=== PATIENT | female | born 1935 | race Two or more races ===

== ENCOUNTER 2024-01-18 22:11 | Inpatient (IN) | payer OTHER, MEDICAID ==
[~2024-01-18] VITALS: Ht 152.4 cm; Wt 66.2 kg
[~2024-01-18 22:11] MED LIST: BUSP15TA60 PO; NITR0.4S29 SL; TRAZ1TAB12 PO
[2024-01-18 22:45] VITALS: PULSE 62; RESP 20; O2SAT 98
[2024-01-18 22:54] LABS: Basophils # (auto) 0 10 ^3/uL (0-0.2); Basophils % (auto) 0.6 % (0.0-2.0); Eosinophils # (auto) 0.2 10 ^3/uL (0-0.8); Eosinophils % (auto) 2.9 % (0.0-7.0); Hematocrit 38.1 % (36.0-46.0); Hemoglobin 13.2 g/dL (12.2-16.2); Lymphocytes # (auto) 2.6 10 ^3/uL (0.4-5.4); Lymphocytes % (auto) 31.3 % (10.0-50.0); Mean Corpuscular Hgb Conc. 34.6 g/dL (32.0-36.0); Mean Corpuscular Volume 92.6 fL (80.0-100.0); Monocytes # (auto) 0.6 10 ^3/uL (0-1.3); Monocytes % (auto) 7.5 % (0.0-12.0); Neutrophils # (auto) 4.8 10 ^3/uL (1.6-8.6); Neutrophils % (auto) 57.7 % (37.0-80.0); Nucleated Red Blood Cells % 0.1 %; Platelet Count (auto) 223 10^3/uL (140-450); Red Blood Cells 4.11 10^6/uL (4.0-5.20); Red Cell Distribution Width 14.4 % (11.8-14.3); White Blood Cell 8.2 10^3/uL (4.4-10.8)
[2024-01-18 23:10] LABS: Alanine Aminotransferase 16 U/L (7-40); Albumin 3.8 g/dL (3.2-4.8); Alkaline Phosphatase 82 U/L (46-116); Anion Gap 6 (5-15); Aspartate Aminotransferase 13 U/L (13-40); BUN/Creatinine Ratio 19.7 (10.0-20.0); Bilirubin, Total 0.3 mg/dL (0.2-1.0); Blood Urea Nitrogen 26 mg/dL (9-23); Calcium 9.6 mg/dL (8.7-10.4); Carbon Dioxide 29 mmol/L (20-31); Chloride 108 mmol/L (98-107); Glucose 110 mg/dL (74-106); Potassium 3.9 mmol/L (3.5-5.1); Sodium 143 mmol/L (136-145); Total Protein 5.8 g/dL (5.7-8.2)
[2024-01-19] MEDS: traZODone HCL 50 MG TAB PO ONE ×2 (01:26→22:33)
[2024-01-19] MEDS ORDERED: ONDANSETRON HCL 4 MG/2 ML VIAL IV PRN (06:45)
[2024-01-19] MEDS ORDERED: MORPHINE SULFATE INJ 2 MG/ml SYRG IV PRN (06:45)
[2024-01-19] MEDS ORDERED: HYDROcodone-ACET 5/325MG TAB PO PRN (06:45)
[2024-01-19] MEDS ORDERED: NITROGLYCERIN 0.4 MG SL TAB SL PRN (06:45)
[2024-01-19] MEDS ORDERED: DOCUSATE SOD 100 MG CAP PO PRN (06:45)
[2024-01-19] MEDS ORDERED: ACETAMINOPHEN 325 MG TAB PO PRN (06:45)
[2024-01-19 07:26] LABS: Alanine Aminotransferase 15 U/L (7-40); Albumin 3.6 g/dL (3.2-4.8); Alkaline Phosphatase 73 U/L (46-116); Anion Gap 5 (5-15); Aspartate Aminotransferase 15 U/L (13-40); BUN/Creatinine Ratio 22.2 (10.0-20.0); Bilirubin, Total 0.3 mg/dL (0.2-1.0); Blood Urea Nitrogen 24 mg/dL (9-23); Calcium 9.3 mg/dL (8.7-10.4); Carbon Dioxide 25 mmol/L (20-31); Chloride 110 mmol/L (98-107); Glucose 103 mg/dL (74-106); Potassium 3.9 mmol/L (3.5-5.1); Sodium 140 mmol/L (136-145)
[2024-01-19 07:27] LABS: Total Protein 5.8 g/dL (5.7-8.2)
[2024-01-19 07:29] LABS: Basophils # (auto) 0 10 ^3/uL (0-0.2); Basophils % (auto) 0.5 % (0.0-2.0); Eosinophils # (auto) 0.2 10 ^3/uL (0-0.8); Eosinophils % (auto) 3.2 % (0.0-7.0); Hemoglobin 12.8 g/dL (12.2-16.2); Lymphocytes # (auto) 2.5 10 ^3/uL (0.4-5.4); Lymphocytes % (auto) 33.4 % (10.0-50.0); Mean Corpuscular Hemoglobin 31.8 pg (28.0-32.0); Mean Corpuscular Hgb Conc. 33.6 g/dL (32.0-36.0); Mean Corpuscular Volume 94.7 fL (80.0-100.0); Monocytes # (auto) 0.6 10 ^3/uL (0-1.3); Monocytes % (auto) 8.6 % (0.0-12.0); Neutrophils # (auto) 4.1 10 ^3/uL (1.6-8.6); Neutrophils % (auto) 54.3 % (37.0-80.0); Platelet Count (auto) 203 10^3/uL (140-450); Red Blood Cells 4.01 10^6/uL (4.0-5.20); Red Cell Distribution Width 14.3 % (11.8-14.3); White Blood Cell 7.5 10^3/uL (4.4-10.8)
[2024-01-19 08:00] VITALS: PULSE 64; RESP 14; O2SAT 99
[2024-01-19 08:51] LABS: Urine Bacteria FEW /hpf (None Seen); Urine Blood Negative /uL (Negative); Urine Clarity Clear (Clear); Urine Color Light-Yellow (Yellow); Urine Protein, UAD Negative (Negative); Urine Specific Gravity 1.016 (1.001-1.035); Urine Urobilinogen Normal (Negative); Urine WBC 1 /hpf (0 - 5); Urine pH 6.5 (5.0-9.0)
[2024-01-19] MEDS: ASPirin 81 mg TAB PO SCH (10:05)
[2024-01-19] MEDS: SODIUM CHLOR 0.9% PF (SALINE LOCK) 10ML VIAL/SYR IV SCH (14:19)
[2024-01-19 20:15] VITALS: RESP 16
[2024-01-19 21:10] VITALS: BP 179/78; PULSE 61; RESP 17; TEMP 97.9; O2SAT 99
[2024-01-19] MEDS: hydrALAZINE HCL 20 MG/ML VL IV PRN (22:09)
[2024-01-19] MEDS ORDERED: METO-289 PO (23:35)
[2024-01-19] MEDS ORDERED: AMLO1TAB21 PO (23:35)
[2024-01-19] MEDS ORDERED: DULO60CA41 PO (23:35)
[2024-01-19] MEDS ORDERED: HYDR-3682 PO (23:35)
[2024-01-19] MEDS ORDERED: LEVO25TA6 PO (23:35)
[2024-01-19] MEDS ORDERED: ASPI-543 PO (23:35)
[2024-01-19] MEDS ORDERED: RISP2TAB62 PO (23:35)
[2024-01-20 01:00] VITALS: BP 124/62; PULSE 77; RESP 18; TEMP 97.6; O2SAT 97
[2024-01-20 05:00] VITALS: BP 126/61; PULSE 69; RESP 17; TEMP 97.6; O2SAT 97
[2024-01-20] MEDS: LEVOTHYROXINE SODIUM 25 MCG TAB PO SCH (05:17)
[2024-01-20 07:34] LABS: Alanine Aminotransferase 12 U/L (7-40); Albumin 4.1 g/dL (3.2-4.8); Alkaline Phosphatase 83 U/L (46-116); Anion Gap 8 (5-15); Aspartate Aminotransferase 14 U/L (13-40); BUN/Creatinine Ratio 22.1 (10.0-20.0); Blood Urea Nitrogen 19 mg/dL (9-23); Calcium 9.8 mg/dL (8.7-10.4); Carbon Dioxide 26 mmol/L (20-31); Chloride 106 mmol/L (98-107); Glucose 105 mg/dL (74-106); Potassium 3.7 mmol/L (3.5-5.1); Sodium 140 mmol/L (136-145)
[2024-01-20 07:35] LABS: Bilirubin, Total 0.5 mg/dL (0.2-1.0); Total Protein 6.5 g/dL (5.7-8.2)
[2024-01-20 07:46] LABS: Basophils # (auto) 0 10 ^3/uL (0-0.2); Basophils % (auto) 0.3 % (0.0-2.0); Eosinophils # (auto) 0.1 10 ^3/uL (0-0.8); Eosinophils % (auto) 1.2 % (0.0-7.0); Hematocrit 39.9 % (36.0-46.0); Hemoglobin 13.9 g/dL (12.2-16.2); Lymphocytes # (auto) 2.3 10 ^3/uL (0.4-5.4); Lymphocytes % (auto) 25.3 % (10.0-50.0); Mean Corpuscular Hemoglobin 31.9 pg (28.0-32.0); Mean Corpuscular Hgb Conc. 34.9 g/dL (32.0-36.0); Mean Corpuscular Volume 91.5 fL (80.0-100.0); Monocytes # (auto) 0.4 10 ^3/uL (0-1.3); Monocytes % (auto) 4.9 % (0.0-12.0); Neutrophils # (auto) 6.3 10 ^3/uL (1.6-8.6); Neutrophils % (auto) 68.3 % (37.0-80.0); Platelet Count (auto) 242 10^3/uL (140-450); Red Blood Cells 4.36 10^6/uL (4.0-5.20); Red Cell Distribution Width 14.2 % (11.8-14.3); White Blood Cell 9.1 10^3/uL (4.4-10.8)
[2024-01-20 08:00] VITALS: BP 152/71; PULSE 55; PULSE 69; RESP 18; TEMP 97.6; O2SAT 97
[2024-01-20 10:37] LABS: Free T3 2.12 pg/mL (2.3-4.2)
[2024-01-20 10:39] LABS: Free T4 (Free Thyroxine) 0.94 ng/dL (0.89-1.76)
[2024-01-20] MEDS ORDERED: traZODone HCL 50 MG TAB PO ONE (10:45)
[2024-01-20 12:00] VITALS: BP 147/65; PULSE 66; RESP 18; TEMP 97.6; O2SAT 97
[2024-01-20] MEDS: METOPROLOL SUCCINATE XL 50 MG TAB PO ONE (12:20)
[2024-01-20] MEDS: DULoxetine HCL 30 MG CAP PO ONE (12:21)
[2024-01-20] MEDS: busPIRone HCL 10 MG TAB PO ONE (12:21)
[2024-01-20 14:09] LABS: Amphetamine Screen, Urine Neg (NEGATIVE); Barbiturate Scree,Urine Neg (NEGATIVE); Benzodiazephine Screen, Urine Neg (NEGATIVE); Cocaine Screen, Urine Neg (NEGATIVE)
[2024-01-20 14:10] LABS: Cannabinoid Screen, Urine Neg (NEGATIVE); Opiate Scree,Urine Neg (NEGATIVE); Phencyclidine Screen, Urine Neg (NEGATIVE)
[2024-01-20] MEDS: busPIRone HCL 10 MG TAB PO SCH (14:47)
[2024-01-20 16:00] VITALS: BP 119/55; PULSE 64; RESP 18; TEMP 97.6; O2SAT 96
[2024-01-20] MEDS: amLODIPine BESYLATE 5 MG TAB PO ONE (16:42)
[2024-01-20] MEDS ORDERED: ATOR20TA50 PO (17:30)
[2024-01-20] MEDS: CYANOCOBALAMIN (B-12) 1000 MCG/1 ML VIAL IM ONE (18:57)
[2024-01-20] MEDS: traZODone HCL 50 MG TAB PO SCH (20:29)
[2024-01-20] MEDS: DULoxetine HCL 30 MG CAP PO SCH (20:29)
[2024-01-20] MEDS: ATORVASTATIN 20 MG TAB PO ONE (20:30)
[2024-01-20 21:00] VITALS: BP 129/64; PULSE 65; RESP 19; TEMP 98.3; O2SAT 95
[2024-01-21 01:00] VITALS: BP 126/60; PULSE 70; RESP 18; TEMP 98.1; O2SAT 97
[2024-01-21] MEDS: CYANOCOBALAMIN 500 MCG TAB PO ONE (04:49)
[2024-01-21] MEDS: LEVOTHYROXINE SODIUM 100 MCG TAB PO SCH (04:51)
[2024-01-21 05:00] VITALS: BP 120/64; PULSE 63; RESP 17; TEMP 98; O2SAT 96
[2024-01-21 07:38] LABS: Basophils # (auto) 0 10 ^3/uL (0-0.2); Basophils % (auto) 0.3 % (0.0-2.0); Eosinophils # (auto) 0.2 10 ^3/uL (0-0.8); Eosinophils % (auto) 2.1 % (0.0-7.0); Hematocrit 38.5 % (36.0-46.0); Hemoglobin 13.2 g/dL (12.2-16.2); Lymphocytes # (auto) 2.4 10 ^3/uL (0.4-5.4); Lymphocytes % (auto) 33.8 % (10.0-50.0); Mean Corpuscular Hemoglobin 31.5 pg (28.0-32.0); Mean Corpuscular Hgb Conc. 34.3 g/dL (32.0-36.0); Mean Corpuscular Volume 91.9 fL (80.0-100.0); Monocytes # (auto) 0.5 10 ^3/uL (0-1.3); Monocytes % (auto) 7.6 % (0.0-12.0); Neutrophils % (auto) 56.2 % (37.0-80.0); Nucleated Red Blood Cells % 0.1 %; Platelet Count (auto) 233 10^3/uL (140-450); Red Blood Cells 4.19 10^6/uL (4.0-5.20); Red Cell Distribution Width 14.5 % (11.8-14.3); White Blood Cell 7.2 10^3/uL (4.4-10.8)
[2024-01-21 07:49] LABS: Anion Gap 6 (5-15); Carbon Dioxide 25 mmol/L (20-31); Chloride 108 mmol/L (98-107); Potassium 3.9 mmol/L (3.5-5.1); Sodium 139 mmol/L (136-145)
[2024-01-21 07:50] LABS: Calcium 9.5 mg/dL (8.7-10.4)
[2024-01-21 07:55] LABS: BUN/Creatinine Ratio 24.3 (10.0-20.0); Blood Urea Nitrogen 27 mg/dL (9-23); Glucose 102 mg/dL (74-106)
[2024-01-21] MEDS: amLODIPine BESYLATE 5 MG TAB PO SCH (09:59)
[2024-01-21] MEDS: METOPROLOL SUCCINATE XL 50 MG TAB PO SCH (09:59)
[2024-01-21] MEDS ORDERED: CYANOCOBALAMIN (B-12) 1000 MCG/1 ML VIAL IM SCH (10:00)
[2024-01-21] MEDS: CYANOCOBALAMIN (B-12) 1000 MCG/1 ML VIAL IM ONE (13:00)
[2024-01-21] MEDS ORDERED: APIX5TAB PO (13:31)
[2024-01-21] MEDS ORDERED: CYAN-17 PO (14:06)
[2024-01-21] MEDS: APIXABAN 5 MG TAB PO SCH (15:07)
[2024-01-21 15:11] VITALS: BP 116/52; PULSE 60; TEMP 36.7
[2024-01-22] MEDS ORDERED: CYANOCOBALAMIN (B-12) 1000 MCG/1 ML VIAL IM SCH (10:00)
[2024-01-28] MEDS ORDERED: APIXABAN 5 MG TAB PO SCH (10:00)
== END 2024-01-21 18:35 | disposition home or self-care (01) | DRG 204 ==
LOC: ER 22:11 → TELE 01-19 06:44 → TELE-WESTW 01-19 21:00 → WEST WING 01-20 10:34
PROVIDERS: ADMIT Internal Medicine; ATTEND Emergency Medicine
DX: R07.81 Pleurodynia (principal); N17.9 Acute kidney failure, unspecified; F02.B4 Dementia in other diseases classified elsewhere, moderate, with anxiety; G30.9 Alzheimer's disease, unspecified; I10 Essential (primary) hypertension; E03.9 Hypothyroidism, unspecified; I44.7 Left bundle-branch block, unspecified; Z79.899 Other long term (current) drug therapy; Z79.82 Long term (current) use of aspirin
CPT/HCPCS: 36415; 71275; 80048; 80053; 80307; 81001; 82306; 82607; 84439; 84443; 84481; 84484; 85025; 85379; 93005; 93306; 93970; 97163; 99291; G0378

== ENCOUNTER 2024-02-05 22:44 | Inpatient (IN) | payer OTHER, MEDICAID, MEDICARE ==
[~2024-02-05] VITALS: Ht 157.5 cm; Wt 72.0 kg
[~2024-02-05 22:44] MED LIST changes: +AMLO1TAB21 PO; +APIX5TAB PO; +ATOR20TA50 PO; +CYAN-17 PO; +DULO60CA41 PO; +HYDR-3682 PO; +LEVO25TA6 PO; +METO-289 PO; +RISP2TAB62 PO
--- NOTE | 2024-02-05 23:05 | ED.PDOC ---
HPI Comments HPI: Poor Historian. 88-year-old female brought in by ambulance from home for evaluation of chest pain and associated shortness of breath while she was getting up to use her walker to go to bed. Her daughter is here at bedside. Patient has been recently diagnosed with pulmonary embolus and is compliant with her Eliquis. Per EMS, pre-hospital vital signs were stable. Patient at that time denied any chest pain or shortness of breath. Patient is not a reliable historian given her history of dementia. Daughter states that the patient voiced chest pain and shortness of breath and that is why she called 911. Past Medcial History: Dementia, hypertension, hyperlipidemia, thyroid disease, pulmonary embolus, chronic kidney disease Past Surgical History: Bilateral knee surgery, cervical fusion, REVIEW OF SYSTEMS: CONSTITUTIONAL: Denies acute: fever, diaphoresis, chills, HEAD: Denies acute: headache, photophobia Eyes: Denies acute: Double vision, vision loss, eye pain, eye discharge. EARS: Denies acute: tinnitus, hearing loss, ear discharge, ear pain, THROAT: Denies acute: sore throat, swelling, difficulty swallowing , pain with swallowing, change in voice. NECK: Denies acute: neck pain, neck swelling, stiff neck. HEART: Denies acute : palpitations, LUNGS: Denies acute: wheezing, cough, hemoptysis ABDOMEN: Denies acute: abdominal pain, Nausea, Vomiting, diarrhea, melena , hematemesis, hematochezia SKIN: Denies acute: rash, redness, lesions, itchiness. EXTREMITIES: Denies acute: calf pain, numbness, tingling, weakness, denies pain in extremity. Denies acute: Low back pain. Neuro: Denies acute: focal neurological deficit, motor or sensory focal neurological deficit, tremors, seizure like activity, confusion, dizziness, change in mental status, loss of bowel or bladder function, cauda equina like symptoms. : Denies acute: dysuria, hematuria, flank pain, increase in urinary frequency. PSYCH: Denies acute: hallucination, suicidal ideation, homicidal ideation. FEMALE: Denies acute: abnormal vaginal bleeding, foul odor, unusual discharge. PHYSICAL EXAM: General: no acute distress, awake and alert. Head: normocephalic, atraumatic. Neck: supple, trachea is midline, no swelling. Throat: Normal phonation. Eyes:, no erythema, no purulent discharge, no proptosis, no icterus. Heart: regular rate, regular rhythm, no significant murmur appreciated. Lungs: no apparent respiratory distress, Able to speak in full sentences. No wheezing, no rhonchi, no crackles. No stridors Clear to auscultation bilaterally. Abdomen: non tender to palpation, non distended, soft, no guarding, no rebound, + bowel sounds. Neuro: Awake, Alert, oriented to name, self, situation, follows commands GCS=15. Speech is normal. Skin: no petechia, no purpura, no cyanosis, non-pale, not jaundice. Lower extremities: --trace bilateral - Pitting edema no deformity, no focal swelling, no calf TTP. Makes eye contact. moves all four extremities. Face: no apparent facial droop. Chief Complaint: Chest Pain Time Seen by MD: 22:53 Reviewed Notes: Nurses Notes, Allergies Allergies: Coded Allergies: NO KNOWN ALLERGIES (Unverified , 01/19/24) Home Meds Active Scripts Metoprolol Succinate (Metoprolol Succinate Er) 25 Mg Tab, 1 TAB PO DAILY for 30 Days, #30 TAB 5 Refills Prov:RAKESH FALK RESIDENT 02/07/24 Levothyroxine Sodium (Levothyroxine Sodium) 25 Mcg Tab, 1 TAB PO DAILY for 30 Days, #30 TAB 5 Refills Prov:RAKESH FALK RESIDENT 02/07/24 Apixaban Base (ELIQUIS) 2.5 Mg Tab, 2.5 MG PO BID for 30 Days, #60 TAB Prov:RAKESH FALK 02/07/24 Nitrofurantoin (Nitrofurantoin) 100 Mg Cap, 1 CAP PO BID for 4 Days, #8 CAP Prov:RAKESH FALK RESIDENT 02/07/24 Cyanocobalamin (B12) 1,000 Mcg Cap, 1000 MCG PO DAILY for 30 Days, #30 CAP Prov:VLADIMIR BAIRD RESIDENT 01/21/24 Apixaban Base (ELIQUIS) 5 Mg Tab, 10 MG PO BID for 7 Days, #28 TAB 10MG BID X 7 DAYS THEN 5MG PO BID FOR AT LEAST 6 MONTHS FOR DVT/PE TREATMENT Prov:VLADIMIR BAIRD RESIDENT 01/21/24 Apixaban Base (ELIQUIS) 5 Mg Tab, 5 MG PO BID for 30 Days, #60 TAB 5 Refills Prov:VLADIMIR BAIRD RESIDENT 01/21/24 Atorvastatin Calcium (ATORVASTATIN CALCIUM) 20 Mg Tab, 20 MG PO ONCE for 30 Days, #30 TAB 2 Refills Prov:VLADIMIR BAIRD RESIDENT 01/20/24 Reported Medications Nitroglycerin (NTROSTAT SUBLINGUAL) 0.4 Mg Sl, 1 TAB SL UD for 90 Days, #100 *MAY REPEAT EVERY 5 MINUTES X 3 TOTAL IF NO RELIEF, INITIATE ANALGESIC THERAPY. NOTIFY PHYSICIAN *Do not crush. 01/20/24 Buspirone Hcl (Buspirone Hcl) 15 Mg Tab, 1 TAB PO TID for 30 Days, #90 01/20/24 Duloxetine Hcl (Cymbalta) 60 Mg Cap, 60 MG PO BID, CAP 01/19/24 Trazodone Hcl (Trazodone Hcl) 150 Mg Tab, 1 TAB PO DAILY for 90 Days, #90 01/19/24 Risperidone (Risperidone) 2 Mg Tab, 1 TAB PO BID PRN for AGITATION 01/19/24 Hydroxyzine Hcl (Hydroxyzine Hcl) 25 Mg Tab, 1 TAB PO DAILY 01/19/24 Levothyroxine Sodium (Levothyroxine Sodium) 25 Mcg Tab, 1 TAB PO DAILY 01/19/24 Amlodipine Besylate (Amlodipine Besylate) 2.5 Mg Tab, 2 TAB PO DAILY 01/19/24 Metoprolol Succinate (Metoprolol Succinate Er) 50 Mg Tab, 1 TAB PO DAILY 01/19/24 Information Source: Patient, Relative, Emergency Med Personnel Was a procedure done? Was a procedure done?: No CP Differential Dx Differential Diagnosis: N/A Differential Diagnosis: Other (Ddx include but not limitied to gastritis, musculoskeletal pain, radiculopathy, atypical chest pain, dissection, aneurysm, ACS, unstable angina, hiatal hernia, GERD, anxiety, costochondritis, PE, pneumothroax, neoplasm, cardiac ischemia, drug abuse, anemia.) X-Ray, Labs, Meds, VS Vital Signs Date Time Temp Pulse Resp B/P (MAP) Pulse Ox O2 Delivery O2 Flow Rate FiO2 02/06/24 04:00 62 20 115/54 (74) 95 02/06/24 04:00 62 02/06/24 02:03 60 02/06/24 02:00 63 10 135/63 (87) 100 02/06/24 01:00 61 21 155/64 (94) 99 02/06/24 00:40 64 14 96 Room Air* 0 21 02/06/24 00:37 97.5 64 14 157/66 (96) 96 97.5 02/06/24 00:00 66 02/05/24 23:54 68 02/05/24 22:56 66 02/05/24 22:45 96 Room Air* 0 21 02/05/24 22:45 98.9 64 22 166/78 (107) 96 Lab Test 02/06/24 00:57 02/06/24 00:04 02/05/24 23:00 Range/Units Urine Color Light-yellow Yellow Urine Clarity Clear Clear Urine pH 6.0 5.0-9.0 Urine Specific [place] 1.024 1.001-1.035 Urine Protein Negative Negative Urine Ketones Negative Negative Urine Blood Negative Negative /uL Urine Nitrite Negative Negative Urine Bilirubin Negative Negative Urine Urobilinogen Normal Negative mg/dL Urine Leukocyte Esterase 1+ Negative /uL Urine RBC 1 0 - 4 /hpf Urine WBC 18 0 - 5 /hpf Urine Squamous Epithelial Cells Few <5 /hpf Urine Bacteria None seen None Seen /hpf Urine Hyaline Casts Few 0 - 2 /lpf Urine Creatinine 106.54 30.0-125.0 mg/dL Urine Sodium 96 40-220 mmol/L Urine Glucose Normal Normal mg/dL Urine Total Protein 18.2 H 1-14 mg/dL Troponin I High Sensitivity 13 12 </=34 ng/L White Blood Count 9.6 4.4-10.8 10^3/uL Red Blood Count 3.94 L 4.0-5.20 10^6/uL Hemoglobin 12.5 12.2-16.2 g/dL Hematocrit 36.7 36.0-46.0 % Mean Corpuscular Volume 93.3 80.0-100.0 fL Mean Corpuscular Hemoglobin 31.9 28.0-32.0 pg Mean Corpuscular Hemoglobin Concent 34.1 32.0-36.0 g/dL Red Cell Distribution Width 14.9 H 11.8-14.3 % Platelet Count 240 140-450 10^3/uL Mean Platelet Volume 7.6 6.9-10.8 fL Neutrophils (%) (Auto) 63.8 37.0-80.0 % Lymphocytes (%) (Auto) 25.1 10.0-50.0 % Monocytes (%) (Auto) 8.1 0.0-12.0 % Eosinophils (%) (Auto) 2.7 0.0-7.0 % Basophils (%) (Auto) 0.3 0.0-2.0 % Neutrophils # (Auto) 6.1 1.6-8.6 10 ^3/uL Lymphocytes # (Auto) 2.4 0.4-5.4 10 ^3/uL Monocytes # (Auto) 0.8 0-1.3 10 ^3/uL Eosinophils # (Auto) 0.3 0-0.8 10 ^3/uL Basophils # (Auto) 0 0-0.2 10 ^3/uL Nucleated Red Blood Cells 0.1 % Sodium Level 142 136-145 mmol/L Potassium Level 4.0 3.5-5.1 mmol/L Chloride Level 111 H 98-107 mmol/L Carbon Dioxide Level 27 20-31 mmol/L Anion Gap 4 L 5-15 Blood Urea Nitrogen 25 H 9-23 mg/dL Creatinine 1.34 H 0.550-1.02 mg/dL Glomerular Filtration Rate Calc 38 >90 mL/min BUN/Creatinine Ratio 18.7 10.0-20.0 Serum Glucose 116 H 74-106 mg/dL Calcium Level 9.5 8.7-10.4 mg/dL Total Bilirubin 0.4 0.2-1.0 mg/dL Aspartate Amino Transferase (AST) 22 13-40 U/L Alanine Aminotransferase (ALT) 33 7-40 U/L Alkaline Phosphatase 76 46-116 U/L B-Type Natriuretic Peptide 70.69 0-100 pg/mL Total Protein 6.1 5.7-8.2 g/dL Albumin 3.8 3.2-4.8 g/dL [address] [address] Ph: [phone] DIAGNOSTIC IMAGING Diagnostic Imaging Report : [id number] Signed PATIENT: KIMBERLEE SAVAGE RACCT: [id number] UNIT: [id number] : 1935 LOC: [facility] AGE / SEX: 88 / F ADM STATUS: DIS IN SERVICE 52 ORDERING PHYSICIAN: VERA MAURO DO PROCEDURE(s): CXRP - CHEST PORTABLE REASON: CHEST PAIN/SOB ORDER NUMBER(s): [id number], ACCESSION NUMBER(s): [id number] EXAM: XY CHEST PORTABLE CLINICAL HISTORY: CHEST PAIN/SOB TECHNIQUE: Single AP view of the chest WID: COMPARISON: None FINDINGS: Lines and tubes: ACDF projects over the lower cervical spine. Chest: The heart size and pulmonary vasculature is within normal limits. Calcified plaque Projects over the aortic arch. No pleural effusion, pneumothorax, or consolidation. The osseous structures are grossly intact. Multilevel thoracic spondylosis. IMPRESSION: No acute cardiopulmonary abnormality. ATED BY: SERJIO MORGAN MD DICTATED DATE/TIME: 02/06/24122 SIGNED BY: SERJIO MORGAN MD SIGNED DATE/TIME: 02/06/24122 CC: Time of 1ST Reevaluation: 23:50 Reevaluation 1ST: Improved Patient Education/Counseling: Diagnosis, Treatment Family Education/Counseling: No Family Present Comments Patient presented with the above HPI.-----cardiac -workup was initiated. patient was found with the above mentioned diagnosis. Patient ED course and VS have been stabilized. Patient has been reassessed in the ED and remained in a stable condition. Pertinent incidental findings were discussed with the patient and/or family. Patient/family voices understanding and is agreeable with plan. Patient has been observed in the ED adequate length of time to insure improvement/stability. patient was admitted to the medicine team for further evaluation and treatment of their presentation. All the reports of any imaging studies that were ordered by myself were reviewed by myself. Departure 1 Departure Time of Disposition: 23:59 Impression: Primary Impression: Chest pain Disposition: 09 ADMITTED INPATIENT Admit to: Tele Condition: Guarded e-Prescriptions Metoprolol Succinate (Metoprolol Succinate Er) 25 Mg Tab 1 TAB PO DAILY for 30 Days, #30 TAB 5 Refills Prov: RAKESH FALK RESIDENT 02/07/24 Levothyroxine Sodium (Levothyroxine Sodium) 25 Mcg Tab 1 TAB PO DAILY for 30 Days, #30 TAB 5 Refills Prov: RAKESH FALK RESIDENT 02/07/24 Apixaban Base (ELIQUIS) 2.5 Mg Tab 2.5 MG PO BID for 30 Days, #60 TAB Prov: RAKESH FALK RESIDENT 02/07/24 Nitrofurantoin (Nitrofurantoin) 100 Mg Cap 1 CAP PO BID for 4 Days, #8 CAP Prov: RAKESH FALK RESIDENT 02/07/24 Discharged With: Self, Relative Critical Care Note Critical Care Time?: No Heart Score Heart Score: Heart Score Response (Comments) Value History Moderate Suspicious 1 EKG Normal 0 Age >65 2 Risk Factors 1 or 2 risk factors 1 Troponin Normal limit 0 Total 4 VERA MAURO DO Feb 05, 2024 23:05
[2024-02-05 23:12] LABS: Basophils # (auto) 0 10 ^3/uL (0-0.2); Basophils % (auto) 0.3 % (0.0-2.0); Eosinophils # (auto) 0.3 10 ^3/uL (0-0.8); Eosinophils % (auto) 2.7 % (0.0-7.0); Hematocrit 36.7 % (36.0-46.0); Hemoglobin 12.5 g/dL (12.2-16.2); Lymphocytes # (auto) 2.4 10 ^3/uL (0.4-5.4); Lymphocytes % (auto) 25.1 % (10.0-50.0); Mean Corpuscular Hemoglobin 31.9 pg (28.0-32.0); Mean Corpuscular Hgb Conc. 34.1 g/dL (32.0-36.0); Mean Corpuscular Volume 93.3 fL (80.0-100.0); Monocytes # (auto) 0.8 10 ^3/uL (0-1.3); Monocytes % (auto) 8.1 % (0.0-12.0); Neutrophils # (auto) 6.1 10 ^3/uL (1.6-8.6); Neutrophils % (auto) 63.8 % (37.0-80.0); Nucleated Red Blood Cells % 0.1 %; Platelet Count (auto) 240 10^3/uL (140-450); Red Blood Cells 3.94 10^6/uL (4.0-5.20); Red Cell Distribution Width 14.9 % (11.8-14.3); White Blood Cell 9.6 10^3/uL (4.4-10.8)
[2024-02-05 23:31] LABS: Alanine Aminotransferase 33 U/L (7-40); Albumin 3.8 g/dL (3.2-4.8); Alkaline Phosphatase 76 U/L (46-116); Anion Gap 4 (5-15); Aspartate Aminotransferase 22 U/L (13-40); BUN/Creatinine Ratio 18.7 (10.0-20.0); Bilirubin, Total 0.4 mg/dL (0.2-1.0); Blood Urea Nitrogen 25 mg/dL (9-23); Calcium 9.5 mg/dL (8.7-10.4); Carbon Dioxide 27 mmol/L (20-31); Chloride 111 mmol/L (98-107); Glucose 116 mg/dL (74-106); Sodium 142 mmol/L (136-145); Total Protein 6.1 g/dL (5.7-8.2)
[2024-02-06] VITALS (8 sets, daily range): BP systolic 117–158; BP diastolic 63–89; PULSE 59–71; RESP 14–20; TEMP 97.4–98.3; O2SAT 93–97
[2024-02-06 01:15] LABS: Urine Bacteria None Seen /hpf (None Seen)
--- NOTE | 2024-02-06 01:25 | DVH ---
EXAM: XY CHEST PORTABLE CLINICAL HISTORY: CHEST PAIN/SOB TECHNIQUE: Single AP view of the chest WID: COMPARISON: None FINDINGS: Lines and tubes: ACDF projects over the lower cervical spine. Chest: The heart size and pulmonary vasculature is within normal limits. Calcified plaque Projects over the aortic arch. No pleural effusion, pneumothorax, or consolidation. The osseous structures are grossly intact. Multilevel thoracic spondylosis. IMPRESSION: No acute cardiopulmonary abnormality.
[2024-02-06 01:40] LABS: Urine Blood Negative /uL (Negative); Urine Clarity Clear (Clear); Urine Color Light-Yellow (Yellow); Urine Hyaline Cast FEW /lpf (0 - 2); Urine Protein, UAD Negative (Negative); Urine Specific Gravity 1.024 (1.001-1.035); Urine Urobilinogen Normal (Negative); Urine WBC 18 /hpf (0 - 5)
[2024-02-06] MEDS ORDERED: NITROGLYCERIN 0.4 MG SL TAB SL PRN (04:15)
[2024-02-06] MEDS ORDERED: HYDROcodone-ACET 5/325MG TAB PO PRN (04:15)
[2024-02-06] MEDS ORDERED: ONDANSETRON HCL 4 MG/2 ML VIAL IV PRN (04:15)
[2024-02-06] MEDS ORDERED: ACETAMINOPHEN 325 MG TAB PO PRN (04:15)
[2024-02-06] MEDS ORDERED: MORPHINE SULFATE INJ 2 MG/ml SYRG IV PRN (04:15)
--- NOTE | 2024-02-06 04:46 | DVHHPRES ---
History of Present Illness Resident Creating Document: AMBAR SMITH RESIDENT History of Present Illness This is a 88 years old female past medical history of dementia, hypertension, hyperlipidemia, pulmonary embolism on Eliquis was presented to the ED by EMS complaint of an episode of chest pain and shortness of breath experienced the previous night while attempting to go to bed. The granddaughter called EMS, who found her vitals to be stable upon arrival. The patient denies any chest pain upon admission, but reports experiencing pain when taking deep breaths or moving. She resides with her granddaughter, who has power of ip attorney. On admission the patient is in AxO times 1-2 and the granddaughter mentioned it is her baseline. Initial EKG and troponins are unremarkable. Cardiovascular: HTN, hyperipidemia Pulmonary: Pulmonary embolus Renal/: Chronic renal failure Past Surgical History: None Family History: None Smoke: No ALCOHOL: none Drugs: None Past Social History Lives with her granddaughter Review of Systems Constitutional: No: Fever, Chills, Sweats, Weakness, Malaise, Other Eyes: No: Pain, Vision change, Conjunctivae inflammation, Eyelid inflammation, Other, Redness ENT: No: Ear pain, Ear discharge, Nose pain, Nose discharge, Nose congestion, Mouth pain, Mouth swelling, Throat pain, Throat swelling, Other Respiratory: Shortness of breath; No: Cough, Dry, SOB with excertion, Wheezing, Hemoptysis, Pleuritic Pain, Sputum, Wheezing, Other Cardiovascular: Chest Pain; No: Palpitations, Orthopnea, Paroxysmal Noc. D yspnea, Edema, Lt Headedness, Other Gastrointestinal: No: Nausea, Vomiting, Abdominal Pain, Diarrhea, Constipation, Melena, Hematochezia, Other Genitourinary: No Dysuria, No Frequency, No Incontinence, No Hematuria, No Retention, No Other Musculoskeletal: No: other, neck pain, shoulder pain, arm pain, back pain, hand pain, leg pain, foot pain Skin: No: Rash, Lesions, Jaundice, Bruising, Other Neurological: No: Weakness, Numbness, Incoordination, Change in speech, Confusion, Seizures, Other Allergies: Coded Allergies: NO KNOWN ALLERGIES (Unverified , 02/05/24) Medications Current Medications Medications Dose Ordered Sig/Minoo Route Start Time Stop Time Status Last Admin Dose Admin Acetaminophen 325 mg Q4HP PRN PO 02/06/24 04:15 Acetaminophen/ Hydrocodone Bitart 1 tab Q4HP PRN PO 02/06/24 04:15 Ondansetron HCl 4 mg Q4HP PRN IV 02/06/24 04:15 Nitroglycerin 0.4 mg Q5MINP PRN SL 02/06/24 04:15 Morphine Sulfate 2 mg Q30M PRN IV 02/06/24 04:15 Ceftriaxone Sodium 50 ml @ 100 mls/hr DAILY IV 02/06/24 10:00 Apixaban 5 mg BID PO 02/06/24 10:00 Atorvastatin Calcium 20 mg HS PO 02/06/24 22:00 Aspirin 81 mg DAILY PO 02/06/24 10:00 Exam Vital Signs Vital Signs Date Time Temp Pulse Resp B/P (MAP) Pulse Ox O2 Delivery O2 Flow Rate FiO2 02/06/24 04:00 62 20 115/54 (74) 95 02/06/24 00:40 Room Air* 0 21 02/06/24 00:37 97.5 97.5 General Appearance: Alert, Cooperative, Other (orientedx2, ) HEENT: Atraumatic, PERRLA, EOMI, Mucous membr. moist/pink Respiratory: Clear to auscultation, Normal air movement Cardiovascular: Regular rate, Normal S1, Normal S2, No murmurs Abdominal: Normal bowel sounds, Soft, No tenderness, No hepatospenomegaly, No masses Extremities: No clubbing, No cyanosis, No edema, Normal pulses, No tenderness/swelling Skin: No rashes, No breakdown, No significant lesion Neuro: Normal speech, Strength at 5/5 X4 ext, Normal tone, Sensation intact Psych/Mental Status: Mental status NL, Mood NL Labs/Xrays Labs Test 02/06/24 04:30 02/06/24 00:57 02/06/24 00:04 02/05/24 23:00 Range/Units Urine Color Light-yellow Yellow Urine Clarity Clear Clear Urine pH 6.0 5.0-9.0 Urine Specific [place] 1.024 1.001-1.035 Urine Protein Negative Negative Urine Ketones Negative Negative Urine Blood Negative Negative /uL Urine Nitrite Negative Negative Urine Bilirubin Negative Negative Urine Urobilinogen Normal Negative mg/dL Urine Leukocyte Esterase 1+ Negative /uL Urine RBC 1 0 - 4 /hpf Urine WBC 18 0 - 5 /hpf Urine Squamous Epithelial Cells Few <5 /hpf Urine Bacteria None seen None Seen /hpf Urine Hyaline Casts Few 0 - 2 /lpf Urine Glucose Normal Normal mg/dL Troponin I High Sensitivity 13 </=34 ng/L White Blood Count 9.6 4.4-10.8 10^3/uL Red Blood Count 3.94 L 4.0-5.20 10^6/uL Hemoglobin 12.5 12.2-16.2 g/dL Hematocrit 36.7 36.0-46.0 % Mean Corpuscular Volume 93.3 80.0-100.0 fL Mean Corpuscular Hemoglobin 31.9 28.0-32.0 pg Mean Corpuscular Hemoglobin Concent 34.1 32.0-36.0 g/dL Red Cell Distribution Width 14.9 H 11.8-14.3 % Platelet Count 240 140-450 10^3/uL Mean Platelet Volume 7.6 6.9-10.8 fL Neutrophils (%) (Auto) 63.8 37.0-80.0 % Lymphocytes (%) (Auto) 25.1 10.0-50.0 % Monocytes (%) (Auto) 8.1 0.0-12.0 % Eosinophils (%) (Auto) 2.7 0.0-7.0 % Basophils (%) (Auto) 0.3 0.0-2.0 % Neutrophils # (Auto) 6.1 1.6-8.6 10 ^3/uL Lymphocytes # (Auto) 2.4 0.4-5.4 10 ^3/uL Monocytes # (Auto) 0.8 0-1.3 10 ^3/uL Eosinophils # (Auto) 0.3 0-0.8 10 ^3/uL Basophils # (Auto) 0 0-0.2 10 ^3/uL Nucleated Red Blood Cells 0.1 % Sodium Level 142 136-145 mmol/L Potassium Level 4.0 3.5-5.1 mmol/L Chloride Level 111 H 98-107 mmol/L Carbon Dioxide Level 27 20-31 mmol/L Anion Gap 4 L 5-15 Blood Urea Nitrogen 25 H 9-23 mg/dL Creatinine 1.34 H 0.550-1.02 mg/dL Glomerular Filtration Rate Calc 38 >90 mL/min BUN/Creatinine Ratio 18.7 10.0-20.0 Serum Glucose 116 H 74-106 mg/dL Calcium Level 9.5 8.7-10.4 mg/dL Total Bilirubin 0.4 0.2-1.0 mg/dL Aspartate Amino Transferase (AST) 22 13-40 U/L Alanine Aminotransferase (ALT) 33 7-40 U/L Alkaline Phosphatase 76 46-116 U/L B-Type Natriuretic Peptide 70.69 0-100 pg/mL Total Protein 6.1 5.7-8.2 g/dL Albumin 3.8 3.2-4.8 g/dL Assessment/Plan Assessment/Plan Assessment and plan: # Acute chest pain rule out ACS - Initial EKG and troponins are unremarkable - Aspirin 81 mg p.o. daily and atorvastatin 20 mg at HS - Ordered echo. # Possible CKD stage 3 - Strict I&O - Avoid nephrotoxic medication - Consulted nephrology # History of pulmonary embolism on Eliquis - Eliquis 5 mg b.i.d. # Dementia - patient is A&O x2 and it is her baseline - Lives with her granddaughter, who is also the power of ip attorney # DVT prophylaxis - patient is on Eliquis Code status could not be discussed as patient is not fully oriented Plan of treatment discussed with Dr. Taveras. Plan discussed with: Patient, Other My Orders Orders - AMBAR SMITH RESIDENT Procedure Category Date Status Time Admit ADMIT 02/06/24 Transmitted 04:07 Allergies LIZZ 02/06/24 In Process 04:07 Code Status CODE 02/06/24 Transmitted 04:07 Acetaminophen Tablet PHA 02/06/24 In Process (Tylenol Tablet) 04:15 Hydrocodone-Acet PHA 02/06/24 In Process 5/325mg Tab ([place] 04:15 Ondansetron Hcl PHA 02/06/24 In Process (Zofran) 04:15 Fall Risk Precautions LIZZ 02/06/[address] 04:07 Complete Blood Count LAB 02/07/24 Verified 04:00 Comprehensive LAB 02/07/24 Verified Metabolic Panel 04:00 Pt Request For Service PT 02/06/24 Logged 04:07 Echo 2d Mode Cardiac US 02/06/24 Logged DOP 04:07 Nitroglycerin PHA 02/06/24 In Process Sublingual (Ntrostat 04:15 Morphine Sulfate PHA 02/06/24 In Process Injection 04:15 Oxygen By Nasal RT 02/06/24 Transmitted Cannula 04:07 Stat Ekg For Chest LIZZ 02/06/24 In Process Pain 04:07 Notify Md Of Changes LIZZ 02/06/24 In Process From Base 04:07 Factory Manager For LIZZ 02/06/24 In Process 24 Hours 04:07 Emergency Dysrhythmia [facility] 02/06/24 In Process Protocol 04:07 Rhythm Strips Once LIZZ 02/06/24 In Process Every Shift 04:07 Ceftriaxone 1gm/50ml PHA 02/06/24 In Process D5w (Rocephin) 10:00 Hemoglobin A1c LAB 02/06/24 In Process 04:15 Vitamin B12 LAB 02/06/24 In Process 04:15 Vitamin D, 25-Hydroxy LAB 02/06/24 In Process 04:15 Thyroid Stimulating LAB 02/06/24 In Process Hormone 04:15 Magnesium LAB 02/06/24 In Process 04:15 Apixaban (Eliquis) PHA 02/06/24 In Process 10:00 Atorvastatin (Lipitor) PHA 02/06/24 In Process 22:00 Aspirin Tablet PHA 02/06/24 In Process 10:00 Date of Service: Feb 06, 2024 Billing Provider: ARACELI TAVERAS MD Common Visit Codes: 86762-[id number] INP/OBS CARE (HIGH) Secondary Visit Codes: 56562-[id number] CARE PLAN 30 MINUTES AMBAR SMITH RESIDENT Feb 06, 2024 04:46 ARACELI TAVERAS MD Feb 06, 2024 15:47
[2024-02-06 06:30] LABS: Free T3 2.13 pg/mL (2.3-4.2)
[2024-02-06 06:34] LABS: Free T4 (Free Thyroxine) 0.89 ng/dL (0.89-1.76)
--- NOTE | 2024-02-06 06:44 | ECG ---
[facility] Test Date: 2024-02-05 Test Time: 23:54:08 Pat Name: KIMBERLEE WRIGHT Department: ED Room: 0273T Gender: F Soldering Machine Setter: SWATI : 1935 Requested By: VERA MAURO Order Number: [id number] Reading MD: Wild Good Measurements Intervals [place] Rate: 68 P: -56 [place]: 112 QRS: 47 QRSD: 141 T: 56 QT: 449 QTc: 478 Interpretive Statements Sinus or ectopic atrial rhythm Borderline short [place] interval Left bundle branch block Baseline wander in lead(s) V6 Electronically Signed On 02-06-2024 13:20:47 PDT by Wild Good Please click the below link to view image of tracing.
--- NOTE | 2024-02-06 06:44 | ECG ---
[facility] Test Date: 2024-02-05 Test Time: 22:56:22 Pat Name: KIMBERLEE WRIGHT Department: ED Room: 0273T Gender: F Chief Contract Officer: SWATI : 1935 Requested By: VERA MAURO Order Number: [id number] Reading MD: Wild Good Measurements Intervals [place] Rate: 66 P: -43 [place]: 112 QRS: 50 QRSD: 135 T: 54 QT: 446 QTc: 468 Interpretive Statements Sinus rhythm Ventricular premature complex Borderline short [place] interval IVCD, consider atypical LBBB Electronically Signed On 02-06-2024 13:20:29 PDT by Wild Good Please click the below link to view image of tracing.
[2024-02-06] MEDS: APIXABAN 5 MG TAB PO SCH (10:34)
[2024-02-06] MEDS: ASPirin 81 mg TAB PO SCH (10:34)
[2024-02-06] MEDS: cefTRIAXone 1GM/50ML D5W 50 ML IV SCH (10:34)
--- NOTE | 2024-02-06 11:18 | DVHINCON2 ---
Date Seen: Feb 06, [address] Zhou Reason for Consultation Acute chest pain rule out ACS History of Present Illness This is a 88 years old female past medical history of hypothyroidism, Alzheimer dementia, hypertension, hyperlipidemia, pulmonary embolism on Eliquis who was re cently admitted to [facility] (January 19, 2024) due to chest pain, Cardiology evaluated the patient at that time and based on the patient's age and mental status the patient was not a good candidate for cardiac catheterization, echocardiogram showed EF 55% and RVSP 40 mmHg for which they preferred a conservative management. Today the patient presented to the ED with a chief complaint complaint of an episode of chest pain and shortness of breath experienced the previous night while attempting to go to bed, she also mentioned this kind of chest pain has been for the last couple of months sometimes associated with anxiety, physical activity, noise in her house ( she is currently living with her daughter who has to kids). Patient was examined at bedside, she denies any chest pain upon admission, but reports experiencing pain when taking deep breaths or moving and mild tenderness on palpation. Urinalysis was positive for UTI. On admission the patient is in AxO times 1-2 and the granddaughter mentioned it is her baseline. Initial EKG and troponins are unremarkable. Past Medical History Alzheimer's dementia Pulmonary embolism Acute kidney injury Hypothyroidism Hypertension Allergies: Coded Allergies: NO KNOWN ALLERGIES (Unverified , 02/05/24) Current Medications Current Medications Medications (Trade) Dose Ordered Sig/Minoo Route PRN Reason Start Time Stop Time Status Last Admin Acetaminophen (Tylenol Tablet) 325 mg Q4HP PRN PO MILD PAIN (1-3 PAIN SCALE) 02/06/24 04:15 Acetaminophen/ Hydrocodone Bitart ([place] 5/325MG Tab) 1 tab Q4HP PRN PO MODERATE PAIN (4-6 PAIN SCALE) 02/06/24 04:15 Ondansetron HCl (Zofran) 4 mg Q4HP PRN IV NAUSEA / VOMITING 02/06/24 04:15 Nitroglycerin (Ntrostat Sublingual) 0.4 mg Q5MINP PRN SL FOR CHEST PAIN 02/06/24 04:15 Morphine Sulfate 2 mg Q30M PRN IV FOR CHEST PAIN 02/06/24 04:15 Ceftriaxone Sodium 50 ml @ 100 mls/hr DAILY IV 02/06/24 10:00 02/06/24 10:34 Apixaban (Eliquis) 5 mg BID PO 02/06/24 10:00 02/06/24 10:34 Atorvastatin Calcium (Lipitor) 20 mg HS PO 02/06/24 22:00 Aspirin 81 mg DAILY PO 02/06/24 10:00 02/06/24 10:34 Review of Systems Constitutional: No: Fever, Chills, Sweats, Weakness, Malaise, Other Eyes: No: Pain, Vision change, Conjunctivae inflammation, Eyelid inflammation, Other, Redness ENT: No: Ear pain, Ear discharge, Nose pain, Nose discharge, Nose congestion, Mouth pain, Mouth swelling, Throat pain, Throat swelling, Other Respiratory: Cough present, Shortness of breath, improving No Wheezing, Hemoptysis, Pleuritic Pain, Sputum, Wheezing, Other Cardiovascular: Yes: Mild Chest Pain that exacerbates on movement and deep inspiration no: Palpitations, Orthopnea, Paroxysmal Noc. Dyspnea, Gastrointestinal: No: Nausea, Vomiting, Abdominal Pain, Diarrhea, Constipation, Melena, Hematochezia, Other Musculoskeletal: No: other, neck pain, shoulder pain, arm pain, back pain, hand pain, leg pain, foot pain Neurological:; No: Weakness, Numbness, Incoordination, Change in speech, Confusion, Seizures Vital Signs Vital Signs Date Time Temp Pulse Resp B/P (MAP) Pulse Ox O2 Delivery O2 Flow Rate FiO2 02/06/24 09:00 66 16 134/63 (86) 97 02/06/24 08:00 Room Air* 0 21 02/06/24 00:37 97.5 97.5 Physical Exam Examination General Appearance: Frail appearance, Alert, Oriented X2, Cooperative, No acute distress HEENT: EOMI Respiratory: Clear to auscultation, Normal air movement Cardiovascular: Regular rate, Normal S1, Normal S2 Abdominal: Normal bowel sounds Extremities: No cyanosis, No edema, Normal pulses, No tenderness/swelling Skin: No rashes, No breakdown Neuro: Normal speech, Strength at 5/5 X4 ext, Normal tone, Sensation intact,Reflexes 2+ Psych/Mental Status: Alzheimer's dementia Labs/Diagnostic Data Labs Test 02/06/24 04:30 02/06/24 00:57 02/06/24 00:04 02/05/24 23:00 Range/Units Hemoglobin A1c 5.2 <5.7 % A1C Magnesium Level 1.8 1.6-2.6 mg/dL Vitamin B12 Level 618 211-911 pg/mL Vitamin D 25-Hydroxy 34.9 30.0-100 ng/mL Thyroid Stimulating Hormone (TSH) 6.52 H 0.55-4.78 uIU/mL Free Thyroxine (T4) Calculated 0.89 0.89-1.76 ng/dL Free Triiodothyronine (T3) pg/mL 2.13 L 2.3-4.2 pg/mL Urine Color Light-yellow Yellow Urine Clarity Clear Clear Urine pH 6.0 5.0-9.0 Urine Specific [place] 1.024 1.001-1.035 Urine Protein Negative Negative Urine Ketones Negative Negative Urine Blood Negative Negative /uL Urine Nitrite Negative Negative Urine Bilirubin Negative Negative Urine Urobilinogen Normal Negative mg/dL Urine Leukocyte Esterase 1+ Negative /uL Urine RBC 1 0 - 4 /hpf Urine WBC 18 0 - 5 /hpf Urine Squamous Epithelial Cells Few <5 /hpf Urine Bacteria None seen None Seen /hpf Urine Hyaline Casts Few 0 - 2 /lpf Urine Glucose Normal Normal mg/dL Troponin I High Sensitivity 13 </=34 ng/L White Blood Count 9.6 4.4-10.8 10^3/uL Red Blood Count 3.94 L 4.0-5.20 10^6/uL Hemoglobin 12.5 12.2-16.2 g/dL Hematocrit 36.7 36.0-46.0 % Mean Corpuscular Volume 93.3 80.0-100.0 fL Mean Corpuscular Hemoglobin 31.9 28.0-32.0 pg Mean Corpuscular Hemoglobin Concent 34.1 32.0-36.0 g/dL Red Cell Distribution Width 14.9 H 11.8-14.3 % Platelet Count 240 140-450 10^3/uL Mean Platelet Volume 7.6 6.9-10.8 fL Neutrophils (%) (Auto) 63.8 37.0-80.0 % Lymphocytes (%) (Auto) 25.1 10.0-50.0 % Monocytes (%) (Auto) 8.1 0.0-12.0 % Eosinophils (%) (Auto) 2.7 0.0-7.0 % Basophils (%) (Auto) 0.3 0.0-2.0 % Neutrophils # (Auto) 6.1 1.6-8.6 10 ^3/uL Lymphocytes # (Auto) 2.4 0.4-5.4 10 ^3/uL Monocytes # (Auto) 0.8 0-1.3 10 ^3/uL Eosinophils # (Auto) 0.3 0-0.8 10 ^3/uL Basophils # (Auto) 0 0-0.2 10 ^3/uL Nucleated Red Blood Cells 0.1 % Sodium Level 142 136-145 mmol/L Potassium Level 4.0 3.5-5.1 mmol/L Chloride Level 111 H 98-107 mmol/L Carbon Dioxide Level 27 20-31 mmol/L Anion Gap 4 L 5-15 Blood Urea Nitrogen 25 H 9-23 mg/dL Creatinine 1.34 H 0.550-1.02 mg/dL Glomerular Filtration Rate Calc 38 >90 mL/min BUN/Creatinine Ratio 18.7 10.0-20.0 Serum Glucose 116 H 74-106 mg/dL Calcium Level 9.5 8.7-10.4 mg/dL Total Bilirubin 0.4 0.2-1.0 mg/dL Aspartate Amino Transferase (AST) 22 13-40 U/L Alanine Aminotransferase (ALT) 33 7-40 U/L Alkaline Phosphatase 76 46-116 U/L B-Type Natriuretic Peptide 70.69 0-100 pg/mL Total Protein 6.1 5.7-8.2 g/dL Albumin 3.8 3.2-4.8 g/dL Assessment Atypical chest pain likely pleuritic, EKG and troponins unremarkable, last echo 55% ejection fraction History of pulmonary embolism, currently on Eliquis 5 mg Urinary tract infection Alzheimer's dementia Hypothyroidism Hypertension Plan/Recommendation Conservative management at this time. Patient is not a good candidate for left heart catheterization based on her age and history of Alzheimer dementia Continue aspirin 20 mg, atorvastatin 20 mg, apixaban 5 mg b.i.d. Nitroglycerin 0.4 mg p.r.n. for chest pain Antibiotics per hospitalist. Case discussed with Dr. Milan Critical care, time spent: 42 minutes Plan discussed with: Patient Date of Service: Feb 06, 2024 Billing Provider: BECCA MILAN MD Cardiology Common Codes: [id number] INP/OBS CARE (Mod) JYOTI LEMUS RESIDENT Feb 06, 2024 11:18
--- NOTE | 2024-02-06 11:45 | ECG ---
[facility] Test Date: 2024-02-06 Test Time: 02:03:02 Pat Name: KIMBERLEE WRIGHT Department: ED Room: [facility] Gender: F Shaker Out: SWATI : 1935 Requested By: VERA MAURO Order Number: [id number] Reading MD: Wild Good Measurements Intervals [place] Rate: 60 P: 71 NM: 154 QRS: 56 QRSD: 125 T: 63 QT: 484 QTc: 484 Interpretive Statements Sinus rhythm IVCD, consider atypical LBBB Electronically Signed On 02-06-2024 13:21:20 PDT by Wild Good Please click the below link to view image of tracing.
--- NOTE | 2024-02-06 12:13 | DVHCONRES ---
Date Seen: Feb 06, 2024 Resident Creating Document: JHAJJ,SARPUNEET RESIDENT Referring Physician MD Abelardo Reason for Consultation Possible CKD stage 3 History of Present Illness Patient is a 88 years old female with past medical history of dementia, hypertension, hyperlipidemia, pulmonary embolism on Eliquis was brought to the ED by EMS for complaint of an episode of chest pain and shortness of breath experienced the previous night while attempting to go to bed. The granddaughter called EMS, who found her vitals to be stable upon arrival. The patient denies any chest pain upon admission, but reports experiencing pain when taking deep breaths or moving. She resides with her granddaughter, who has power of business attorney. On admission the patient is in AxO times 1-2 and the granddaughter mentioned it is her baseline. Initial EKG and troponins are unremarkable. Past Medical History Dementia, hypertension, hyperlipidemia, pulmonary embolism on Eliquis Past Surgical History Bilateral total knee replacement Social History Lives with granddaughter, denies smoking , alcohol or drug use Allergies: Coded Allergies: NO KNOWN ALLERGIES (Unverified , 02/05/24) Current Medications Current Medications Medications (Trade) Dose Ordered Sig/Minoo Route PRN Reason Start Time Stop Time Status Last Admin Acetaminophen (Tylenol Tablet) 325 mg Q4HP PRN PO MILD PAIN (1-3 PAIN SCALE) 02/06/24 04:15 Acetaminophen/ Hydrocodone Bitart ([place] 5/325MG Tab) 1 tab Q4HP PRN PO MODERATE PAIN (4-6 PAIN SCALE) 02/06/24 04:15 Ondansetron HCl (Zofran) 4 mg Q4HP PRN IV NAUSEA / VOMITING 02/06/24 04:15 Nitroglycerin (Ntrostat Sublingual) 0.4 mg Q5MINP PRN SL FOR CHEST PAIN 02/06/24 04:15 Morphine Sulfate 2 mg Q30M PRN IV FOR CHEST PAIN 02/06/24 04:15 Ceftriaxone Sodium 50 ml @ 100 mls/hr DAILY IV 02/06/24 10:00 02/06/24 10:34 Apixaban (Eliquis) 5 mg BID PO 02/06/24 10:00 02/06/24 10:34 Atorvastatin Calcium (Lipitor) 20 mg HS PO 02/06/24 22:00 Aspirin 81 mg DAILY PO 02/06/24 10:02/06/24 10:34 Review of Systems Patient seen and examined the bedside. Patient is alert and oriented to person but disoriented to time and place. Patient responds to verbal commands and is spontaneous eye opening, GCS 15. Patient does not report of any chest pain, palpitations, headache, dizziness. Patient's blood pressure 143/71 mmHg, heart rate 75 per minute, SpO2 95% on room air. Vital Signs Vital Signs Date Time Temp Pulse Resp B/P (MAP) Pulse Ox O2 Delivery O2 Flow Rate FiO2 02/06/24 11:00 75 14 143/71 (95) 95 02/06/24 08:00 Room Air* 0 21 02/06/24 00:37 97.5 97.5 Physical Exam Physical Examination Gen - no pallor, no icterus, no cyanosis, no clubbing, no LAD, no edema . Skin - Patients skin is warm and dry.. HEENT - normocephalic, atraumatic, moist mucous membranes. Neck - full ROM, no LAD, no JVD Pulmonary - decreased breath sounds and minimal crackles in the right lower lobe as compared to the left , no wheezing, no stridor. cardiovascular - normal S1,S2 heard. no murmurs heard. peripheral pulses normal radial 2+, pedal 2+. capillary refill normal <2 secs. GI - soft abdomen without tenderness to palpation . no hepatospleenomegaly. Bowel sounds+ Neurological - Patient is A/O X1 . Bilateral upper extremity strength 5/5, bilateral lower extremity strength 5/5, no facial droop, normal speech, no tremor, no sensory deficiets. Labs/Diagnostic Data Labs Test 02/06/24 04:30 02/06/24 00:57 02/06/24 00:04 02/05/24 23:00 Range/Units Hemoglobin A1c 5.2 <5.7 % A1C Magnesium Level 1.8 1.6-2.6 mg/dL Vitamin B12 Level 618 211-911 pg/mL Vitamin D 25-Hydroxy 34.9 30.0-100 ng/mL Thyroid Stimulating Hormone (TSH) 6.52 H 0.55-4.78 uIU/mL Free Thyroxine (T4) Calculated 0.89 0.89-1.76 ng/dL Free Triiodothyronine (T3) pg/mL 2.13 L 2.3-4.2 pg/mL Urine Color Light-yellow Yellow Urine Clarity Clear Clear Urine pH 6.0 5.0-9.0 Urine Specific [place] 1.024 1.001-1.035 Urine Protein Negative Negative Urine Ketones Negative Negative Urine Blood Negative Negative /uL Urine Nitrite Negative Negative Urine Bilirubin Negative Negative Urine Urobilinogen Normal Negative mg/dL Urine Leukocyte Esterase 1+ Negative /uL Urine RBC 1 0 - 4 /hpf Urine WBC 18 0 - 5 /hpf Urine Squamous Epithelial Cells Few <5 /hpf Urine Bacteria None seen None Seen /hpf Urine Hyaline Casts Few 0 - 2 /lpf Urine Glucose Normal Normal mg/dL Troponin I High Sensitivity 13 </=34 ng/L White Blood Count 9.6 4.4-10.8 10^3/uL Red Blood Count 3.94 L 4.0-5.20 10^6/uL Hemoglobin 12.5 12.2-16.2 g/dL Hematocrit 36.7 36.0-46.0 % Mean Corpuscular Volume 93.3 80.0-100.0 fL Mean Corpuscular Hemoglobin 31.9 28.0-32.0 pg Mean Corpuscular Hemoglobin Concent 34.1 32.0-36.0 g/dL Red Cell Distribution Width 14.9 H 11.8-14.3 % Platelet Count 240 140-450 10^3/uL Mean Platelet Volume 7.6 6.9-10.8 fL Neutrophils (%) (Auto) 63.8 37.0-80.0 % Lymphocytes (%) (Auto) 25.1 10.0-50.0 % Monocytes (%) (Auto) 8.1 0.0-12.0 % Eosinophils (%) (Auto) 2.7 0.0-7.0 % Basophils (%) (Auto) 0.3 0.0-2.0 % Neutrophils # (Auto) 6.1 1.6-8.6 10 ^3/uL Lymphocytes # (Auto) 2.4 0.4-5.4 10 ^3/uL Monocytes # (Auto) 0.8 0-1.3 10 ^3/uL Eosinophils # (Auto) 0.3 0-0.8 10 ^3/uL Basophils # (Auto) 0 0-0.2 10 ^3/uL Nucleated Red Blood Cells 0.1 % Sodium Level 142 136-145 mmol/L Potassium Level 4.0 3.5-5.1 mmol/L Chloride Level 111 H 98-107 mmol/L Carbon Dioxide Level 27 20-31 mmol/L Anion Gap 4 L 5-15 Blood Urea Nitrogen 25 H 9-23 mg/dL Creatinine 1.34 H 0.550-1.02 mg/dL Glomerular Filtration Rate Calc 38 >90 mL/min BUN/Creatinine Ratio 18.7 10.0-20.0 Serum Glucose 116 H 74-106 mg/dL Calcium Level 9.5 8.7-10.4 mg/dL Total Bilirubin 0.4 0.2-1.0 mg/dL Aspartate Amino Transferase (AST) 22 13-40 U/L Alanine Aminotransferase (ALT) 33 7-40 U/L Alkaline Phosphatase 76 46-116 U/L B-Type Natriuretic Peptide 70.69 0-100 pg/mL Total Protein 6.1 5.7-8.2 g/dL Albumin 3.8 3.2-4.8 g/dL Plan/Recommendation Assessment and plan ## Acute chest pain rule out ACS - Initial EKG and troponins are unremarkable # SUSAN on ? CKD stage 3 likely d/t VMN - serum creatinine 1.34, BUN 25 - GFR 38 mL/min - urine sodium, urine creatinine, urine protein creatinine ratio pending - renal ultrasound pending - monitor I&O - Avoid nephrotoxic medication # History of pulmonary embolism on Eliquis 5 mg b.i.d. # Dementia - patient is A&O x 1( reported her baseline is alert and oriented x 1-2) - Lives with her granddaughter, who is also the power of business attorney # DVT prophylaxis - patient is on Eliquis Code status could not be discussed as patient is not fully oriented Plan discussed with . Plan discussed with: Other (RN (Christiano)) GONZALEZ HAJI RESIDENT Feb 06, 2024 12:13
[2024-02-06 12:34] LABS: Protein, Urine 18.2 mg/dL (1-14)
[2024-02-06 12:37] LABS: Creatinine, Urine 106.54 mg/dL (30.0-125.0)
--- NOTE | 2024-02-06 13:18 | DVH ---
RENAL ULTRASOUND CLINICAL HISTORY: suspected CKD TECHNIQUE: Multiple ultrasound images of the kidneys and bladder were obtained. COMPARISON: None FINDINGS: The right kidney measures 8.9 cm in length. The left kidney measures 9.7 cm. There is no sonographic evidence of a discrete renal lesion, nephrolithiasis or hydronephrosis. The bladder grossly appears within normal limits with volume measuring 288 cc. IMPRESSION: 1. Unremarkable sonographic appearance of the kidneys. HS:Y
--- NOTE | 2024-02-06 13:21 | DVHSR ---
APPROVED REPORT EXAM: LIMITED Two-dimensional and M-mode echocardiogram with Doppler and color Doppler. Blood Pressure: 144/62 mmHg INDICATION Chest Pain RISK FACTORS Height: 5' 2", Weight: 110 DIMENSIONS LVDd4.6 (3.8-5.7cm)LA (2D)3.7 (1.9-4.0cm)Aortic Root2.8 (2.0-3.7cm) LVDs3.5 (2.5-4.0cm)LA (MM) (1.9-4.0cm)Aortic Cusp Exc1.5 (1.5-2.0cm) EF (%) 50.0 (55-70%)Rt. Atrium3.4 (1.9-4.0cm)Asc. Aorta cm IVSd0.8 (0.7-1.1cm)RV (D) (1.8-2.4cm) PWd1.0 (0.7-1.1cm) Mitral Valve MitralMitral Stenosis E wave0.70m/sMV Mean GR.mmHg A wave0.90m/sMV Peak GR.mmHg E/A ratio0.82D MVAcm2 Aortic Valve Aortic ValveAortic Stenosis V10.80m/Sagrario Mean GR.3mmHg V21.10m/Sagrario Peak GR.5mmHg LVOT Diameter1.8 (1.8-2.4cm)Doppler AVA1.85cm2 Pulmonic Valve V20.50m/s Tricuspid Valve TR Velocity2.40m/s [id number] Other Information Quality : Technically LimitedRhythm : Technically limited study due to body habitus. Conclusion Normal left ventricular size and dimension. Mildly reduced left ventricular systolic function in linda bal fashion estimated ejection fraction 45%, this is likely due to significant bradycardia... There is a grade 1 diastolic dysfunction. Normal right ventricular size and dimension. Normal right ventricular systolic function. Normal biatrial size and dimension. Normal aortic valve structure and function. Normal mitral valve structure function. Normal tricuspid valve structure function. Pulmonary valve is grossly. No pericardial effusion.
--- NOTE | 2024-02-06 18:30 | DVHPNRES ---
Progress Note Date Seen: Feb 06, 2024 Resident Creating Document: HERNANDEZ SPRINGER RESIDENT Medical Necessity Reason Pt with a Central, PICC or Fol: No Subjective Review of Systems Patient is 88 years old female with past medical history not limited to hypertension, hyperlipidemia, dementia, pulmonary embolism on Eliquis, hypothyroidism, suspected CKD came to the ER with a complaint of chest pain and shortness of breaths. Patient is a poor historian. History was taken from the patient's granddaughter crystal [phone]. As per granddaughter patient starting having chest pain right before going to bed. Patient also endorsed some short of breath which was associated with chest pain. As per granddaughter was associated mostly with the breathing, when patient was breathing. Patient did not any nausea, vomiting, constipation, diarrhea, change in vision, dysarthria. Initial lab workup revealed creatinine 1.34, GFR 38, TSH 6.52, FT3 2.13, FT4 0.8, leukocyte esterase 2+, WBC 18, bacteria none. CXR no acute cardiopulmonary disease. Renal sound-Unremarkable sonographic appearance of the kidneys. Echo 2D revealed-Normal left ventricular size and dimension. Mildly reduced left ventricular systolic function in global fashion estimated ejection fraction 45%, this is likely due to significant bradycardia... There is a grade 1 diastolic dysfunction. PMH- hypertension, hyperlipidemia, dementia, pulmonary embolism on Eliquis, hypothyroidism, suspected CKD PSH- bilateral knee surgery, cervical spine surgery Allergy- NKDA Personal History/ Social History- granddaughter, nonalcoholic, non smoker, no drug abuse Patient was seen today at the bedside. Patient reports feeling well Cardiovascular- deny acute chest pain or shortness of breath or cough or palpitation Respiratory- denies cough or short of breath or wheezing Gastrointestinal- denies any rectal bleeding, nausea or vomiting Musculoskeletal-denies acute joint swelling or tenderness or redness Neurological- denies acute dysarthria, dysphagia, change in vision Skin- fragility skin Objective vital signs Vital Sign Date Time Temp Pulse Resp B/P (MAP) Pulse Ox O2 Delivery O2 Flow Rate FiO2 02/06/24 18:16 97.9 62 20 158/68 (98) 94 97.9 02/06/24 08:00 Room Air* 0 21 medications Current Medications Medications Dose Ordered Sig/Minoo Route Start Time Stop Time Status Last Admin Dose Admin Acetaminophen 325 mg Q4HP PRN PO 02/06/24 04:15 Acetaminophen/ Hydrocodone Bitart 1 tab Q4HP PRN PO 02/06/24 04:15 Ondansetron HCl 4 mg Q4HP PRN IV 02/06/24 04:15 Nitroglycerin 0.4 mg Q5MINP PRN SL 02/06/24 04:15 Morphine Sulfate 2 mg Q30M PRN IV 02/06/24 04:15 Ceftriaxone Sodium 50 ml @ 100 mls/hr DAILY IV 02/06/24 10:00 02/06/24 10:34 100 MLS/HR Atorvastatin Calcium 20 mg HS PO 02/06/24 22:00 Aspirin 81 mg DAILY PO 02/06/24 10:00 02/06/24 10:34 81 MG Apixaban 2.5 mg BID PO 02/06/24 22:00 Examination General examination-no acute distress noted HEENT- PEERLA, no acute nasal discharge Cardiovascular- S1-S2 audible, rate and rhythm regular, no murmur Respiratory- CTAB, no wheeze or rhonchi Gastrointestinal-nontender, bowel sound+. Nondistended Musculoskeletal-no acute joint swelling or tenderness or redness# Lower extremity- leg edema Neurological- cranial nerves intact, no acute dysarthria or dysphagia Psychiatry- AAOX1 Skin- no acute rash or purpura laboratory and microbiology Laboratory Tests 02/05/24 23:00 Test 02/05/24 23:00 Range/Units Serum Glucose 116 H 74-106 mg/dL Problem List/Assessment/Plan Problem List/Assessment/Plan Patient was recently diagnosed with pulmonary embolism 2 weeks before as per granddaughter. CT angio was not done because of patient's recent history of pulmonary embolism, patient dementia, patient is also on [facility] CT angiogram we will not change the plan of care. Acute chest pain due to ACS/pulmonary embolism/pleuritic chest pain/costochondritis/pneumonia -troponin negative -EKG sinus rhythm with left bundle-branch block -CXR no acute cardiopulmonary disease -echo 2D-Mildly reduced left ventricular systolic function in global fashion estimated ejection fraction 45%, this is likely due to significant bradycardia... There is a grade 1 diastolic dysfunction. -patient was seen by Cardiology, recommendation reviewed and appreciated -continue aspirin 81 mg p.o. q.d. -continue atorvastatin 20 mg p.o. q.h.s. -nitroglycerin p.r.n. # UTI -urinalysis-leukocyte esterase 2+, WBC 18 -continue ceftriaxone 1 g IV daily -pending uterine CS -avoid dehydration and nephrotoxic drugs Hyperlipidemia -continue atorvastatin 20 mg q.h.s. # history of pulmonary embolism -patient was recently diagnosed with pulmonary embolism 2 weeks before as per granddaughter. CT angio was not done because of patient's recent history of pulmonary embolism, patient dementia, patient is also on Eliquis CT angiogram we will not change the plan of care. -reduced Eliquis from 5 mg to 2.5 mg p.o. b.i.d. because of patient's age and GFR 38, # SUSAN on ? CKD stage 3 likely d/t VMN - serum creatinine 1.34, BUN 25 - GFR 38 mL/min - urine sodium, urine creatinine, urine protein creatinine ratio pending - renal ultrasound pending - monitor I&O - Avoid nephrotoxic medication -nephrology consultation reviewed and appreciated #Hypothyroidism -TSH 6.52 -continue levothyroxine 25 mcg q.d. # hypertension- amlodipine 5 mg q.d. 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 DVT prophylaxis: Eliquis 2.5 mg b.i.d. Plan discussed with Dr. Dalton,,, nursing staff, patient, granddaughter Total time spent on patient evaluation, chart review, assessment and plan, discussion discussion >20 minutes Plan discussed with: Patient Plan discussed with: Patient, Daughter (, GRANDDAUGHTER, RN), Other My Orders My Orders Orders - HERNANDEZ SPRINGER Procedure Category Date Status Time Apixaban (Eliquis) PHA 02/06/24 In Process 22:00 Date of Service: Feb 06, 2024 Billing Provider: FEDERICO DALTON MD Common Visit Codes: [id number] INP/OBS CARE(HIGH) Secondary Visit Codes: [id number] CARE PLAN 30 MINUTES HERNANDEZ SPRINGER Feb 06, 2024 18:30 FEDERICO DALTON MD Feb 06, 2024 20:56
[2024-02-06] MEDS: ATORVASTATIN 20 MG TAB PO SCH (20:34)
[2024-02-06] MEDS: APIXABAN 2.5 MG TAB PO SCH (20:34)
[2024-02-06] MEDS: amLODIPine BESYLATE 5 MG TAB PO ONE (20:43)
[2024-02-06] MEDS: PANTOPRAZOLE 40 MG TAB PO ONE (20:43)
[2024-02-07 03:50] VITALS: BP 151/63; PULSE 67; RESP 20; TEMP 98.3; O2SAT 93
[2024-02-07 05:00] VITALS: BP 151/63; PULSE 67; RESP 20; TEMP 98.3; O2SAT 93
[2024-02-07] MEDS: PANTOPRAZOLE 40 MG TAB PO SCH (06:12)
[2024-02-07] MEDS: LEVOTHYROXINE SODIUM 25 MCG TAB PO SCH (06:13)
[2024-02-07 06:53] LABS: Basophils # (auto) 0 10 ^3/uL (0-0.2); Basophils % (auto) 0.4 % (0.0-2.0); Eosinophils # (auto) 0.3 10 ^3/uL (0-0.8); Eosinophils % (auto) 3.3 % (0.0-7.0); Hemoglobin 12.5 g/dL (12.2-16.2); Lymphocytes # (auto) 2.1 10 ^3/uL (0.4-5.4); Mean Corpuscular Hemoglobin 32.4 pg (28.0-32.0); Mean Corpuscular Hgb Conc. 34.8 g/dL (32.0-36.0); Mean Corpuscular Volume 92.9 fL (80.0-100.0); Monocytes # (auto) 0.8 10 ^3/uL (0-1.3); Monocytes % (auto) 8.4 % (0.0-12.0); Neutrophils # (auto) 5.8 10 ^3/uL (1.6-8.6); Neutrophils % (auto) 64.9 % (37.0-80.0); Nucleated Red Blood Cells % 0.1 %; Platelet Count (auto) 232 10^3/uL (140-450); Red Blood Cells 3.88 10^6/uL (4.0-5.20); Red Cell Distribution Width 14.7 % (11.8-14.3)
[2024-02-07 07:12] LABS: Alanine Aminotransferase 28 U/L (7-40); Albumin 3.8 g/dL (3.2-4.8); Alkaline Phosphatase 73 U/L (46-116); Anion Gap 7 (5-15); Aspartate Aminotransferase 15 U/L (13-40); BUN/Creatinine Ratio 20.7 (10.0-20.0); Blood Urea Nitrogen 18 mg/dL (9-23); Calcium 9.7 mg/dL (8.7-10.4); Carbon Dioxide 26 mmol/L (20-31); Chloride 107 mmol/L (98-107); Glucose 101 mg/dL (74-106); Potassium 3.8 mmol/L (3.5-5.1); Sodium 140 mmol/L (136-145)
[2024-02-07 07:13] LABS: Bilirubin, Total 0.5 mg/dL (0.2-1.0); Total Protein 6.2 g/dL (5.7-8.2)
[2024-02-07 08:00] VITALS: PULSE 62; RESP 18; O2SAT 96
[2024-02-07 08:58] VITALS: BP 137/65; PULSE 74; RESP 19; TEMP 97.5; O2SAT 97
--- NOTE | 2024-02-07 12:24 | DVHDSRES ---
Discharge Summary Date of Admission Resident Creating Document: HERNANDEZ SPRINGER RESIDENT Feb 06, 2024 at 04:11 Date of Discharge: Feb 07, 2024 Labs/Diagnostic Data: Laboratory Results Test 02/07/24 05:58 02/06/24 04:30 02/06/24 00:57 02/06/24 00:04 White Blood Count 9.0 10^3/uL (4.4-10.8) Red Blood Count 3.88 10^6/uL (4.0-5.20) Hemoglobin 12.5 g/dL (12.2-16.2) Hematocrit 36.0 % (36.0-46.0) Mean Corpuscular Volume 92.9 fL (80.0-100.0) Mean Corpuscular Hemoglobin 32.4 pg (28.0-32.0) Mean Corpuscular Hemoglobin Concent 34.8 g/dL (32.0-36.0) Red Cell Distribution Width 14.7 % (11.8-14.3) Platelet Count 232 10^3/uL (140-450) Mean Platelet Volume 8.1 fL (6.9-10.8) Neutrophils (%) (Auto) 64.9 % (37.0-80.0) Lymphocytes (%) (Auto) 23.0 % (10.0-50.0) Monocytes (%) (Auto) 8.4 % (0.0-12.0) Eosinophils (%) (Auto) 3.3 % (0.0-7.0) Basophils (%) (Auto) 0.4 % (0.0-2.0) Neutrophils # (Auto) 5.8 10 ^3/uL (1.6-8.6) Lymphocytes # (Auto) 2.1 10 ^3/uL (0.4-5.4) Monocytes # (Auto) 0.8 10 ^3/uL (0-1.3) Eosinophils # (Auto) 0.3 10 ^3/uL (0-0.8) Basophils # (Auto) 0 10 ^3/uL (0-0.2) Nucleated Red Blood Cells 0.1 % Sodium Level 140 mmol/L (136-145) Potassium Level 3.8 mmol/L (3.5-5.1) Chloride Level 107 mmol/L (98-107) Carbon Dioxide Level 26 mmol/L (20-31) Anion Gap 7 (5-15) Blood Urea Nitrogen 18 mg/dL (9-23) Creatinine 0.87 mg/dL (0.550-1.02) Glomerular Filtration Rate Calc 64 mL/min (>90) BUN/Creatinine Ratio 20.7 (10.0-20.0) Serum Glucose 101 mg/dL (74-106) Calcium Level 9.7 mg/dL (8.7-10.4) Total Bilirubin 0.5 mg/dL (0.2-1.0) Aspartate Amino Transferase (AST) 15 U/L (13-40) Alanine Aminotransferase (ALT) 28 U/L (7-40) Alkaline Phosphatase 73 U/L (46-116) Total Protein 6.2 g/dL (5.7-8.2) Albumin 3.8 g/dL (3.2-4.8) Hemoglobin A1c 5.2 % A1C (<5.7) Magnesium Level 1.8 mg/dL (1.6-2.6) Vitamin B12 Level 618 pg/mL (211-911) Vitamin D 25-Hydroxy 34.9 ng/mL (30.0-100) Thyroid Stimulating Hormone (TSH) 6.52 uIU/mL (0.55-4.78) Free Thyroxine (T4) Calculated 0.89 ng/dL (0.89-1.76) Free Triiodothyronine (T3) pg/mL 2.13 pg/mL (2.3-4.2) Urine Color Light-yellow (Yellow) Urine Clarity Clear (Clear) Urine pH 6.0 (5.0-9.0) Urine Specific [place] 1.024 (1.001-1.035) Urine Protein Negative (Negative) Urine Ketones Negative (Negative) Urine Blood Negative /uL (Negative) Urine Nitrite Negative (Negative) Urine Bilirubin Negative (Negative) Urine Urobilinogen Normal mg/dL (Negative) Urine Leukocyte Esterase 1+ /uL (Negative) Urine RBC 1 /hpf (0 - 4) Urine WBC 18 /hpf (0 - 5) Urine Squamous Epithelial Cells Few /hpf (<5) Urine Bacteria None seen /hpf (None Seen) Urine Hyaline Casts Few /lpf (0 - 2) Urine Creatinine 106.54 mg/dL (30.0-125.0) Urine Sodium 96 mmol/L (40-220) Urine Glucose Normal mg/dL (Normal) Urine Total Protein 18.2 mg/dL (1-14) Troponin I High Sensitivity 13 ng/L (</=34) Test 02/05/24 23:00 B-Type Natriuretic Peptide 70.69 pg/mL (0-100) Other Laboratory Tests 02/07/24 05:58 Brief Hx & Hospital Course: Patient is 88 years old female with past medical history not limited to hypertension, hyperlipidemia, dementia, pulmonary embolism on Eliquis, hypothyroidism, suspected CKD came to the ER with a complaint of chest pain and shortness of breaths. Patient is a poor historian. History was taken from the patient's granddaughter crystal [phone]. As per granddaughter patient starting having chest pain right before going to bed. Patient also endorsed some short of breath which was associated with chest pain. As per granddaughter was associated mostly with the breathing, when patient was breathing. Patient did not any nausea, vomiting, constipation, diarrhea, change in vision, dysarthria. Initial lab workup revealed creatinine 1.34, GFR 38, TSH 6.52, FT3 2.13, FT4 0.8, leukocyte esterase 2+, WBC 18, bacteria none. CXR no acute cardiopulmonary disease. Renal sound-Unremarkable sonographic appearance of the kidneys. Echo 2D revealed-Normal left ventricular size and dimension. Mildly reduced left ventricular systolic function in global fashion estimated ejection fraction 45%, this is likely due to significant bradycardia... There is a grade 1 diastolic dysfunction. Patient clinically stable. No complaint of pleuritic chest pain. Patient is seen by Cardiology and as per Cardiology based on patient's age and dementia patient is not a good candidate for cardiac catheterization, medical management. Patient was also seen by Nephrology SUSAN on CKD. Patient was recently diagnosed with pulmonary embolism 2 weeks before as per granddaughter. CT angio was not done because of patient's recent history of pulmonary embolism, patient with dementia, patient is also on Eliquis already. CT angiogram we will not change the plan of care. Because of patient's is over 80 and CKD patient's Eliquis was reduced from 5 mg b.i.d. to 2.5 mg b.i.d. patient.was on metoprolol 50 mg b.i.d. at home but patient was developing mild sinus bradycardia during hospitalization. Patient was also found to have UTI and discharged with Macrobid 100 mg p.o. b.i.d. for 4 more days. We will change metoprolol to metoprolol succinate XL 25 mg p.o. q.d. patient is being discharged home in hemodynamically stable condition. Patient's meds were sent to the pharmacy electronically. PMH- hypertension, hyperlipidemia, dementia, pulmonary embolism on Eliquis, hypothyroidism, suspected CKD PSH- bilateral knee surgery, cervical spine surgery Allergy- NKDA Personal History/ Social History- granddaughter, nonalcoholic, non smoker, no drug abuse Patient was seen today at the bedside. Patient reports feeling well Cardiovascular- deny acute chest pain or shortness of breath or cough or palpitation Respiratory- denies cough or short of breath or wheezing Gastrointestinal- denies any rectal bleeding, nausea or vomiting Musculoskeletal-denies acute joint swelling or tenderness or redness Neurological- denies acute dysarthria, dysphagia, change in vision Skin- fragility skin General examination-no acute distress noted HEENT- PEERLA, no acute nasal discharge Cardiovascular- S1-S2 audible, rate and rhythm regular, no murmur Respiratory- CTAB, no wheeze or rhonchi Gastrointestinal-nontender, bowel sound+. 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 b.i.d. for 4 days metoprolol succinet XL 25 codeine Eliquis 2.5 mg b.i.d. Amlodipine 2.5 mg daily Please resume other home medications Discharge Statement: "Patient was advised to return to the ER or call 911 if any headaches, dizziness, shortness of breath, chest pain, abdominal pain, bleeding, fevers, or worsening of medical condition. Patient was counseled about treatment plan, medications, possible side effects, patientverbalized understanding. All questions were answered to the best of my ability. 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
[2024-02-07 13:00] VITALS: BP 139/73; PULSE 70; RESP 19; TEMP 97.8; O2SAT 98
[2024-02-07 13:11] VITALS: BP 137/68; PULSE 74; RESP 19; TEMP 97.5; O2SAT 97
[2024-02-07] MEDS ORDERED: METO25TA93 PO (13:39)
[2024-02-07] MEDS ORDERED: LEVO25TA6 PO (13:39)
[2024-02-07] MEDS ORDERED: NITR-52 PO (13:39)
[2024-02-07] MEDS ORDERED: APIX2.5T PO (13:39)
--- NOTE | 2024-02-07 14:03 | DVHPN2 ---
Progress Note Date Seen: Feb 07, 2024 Resident Creating Document: JHSofiaJCAROLINA SantosJUANPABLO RESIDENT Medical Necessity Reason Pt with a Central, PICC or Fol: No Subjective Review of Systems Patient is a 88 years old female with past medical history of dementia, hypertension, hyperlipidemia, pulmonary embolism on Eliquis was brought to the ED by EMS for complaint of an episode of chest pain and shortness of breath experienced the previous night while attempting to go to bed. The granddaughter called EMS, who found her vitals to be stable upon arrival. The patient denies any chest pain upon admission, but reports experiencing pain when taking deep breaths or moving. She resides with her granddaughter, who has power of compliance attorney. On admission the patient is in AxO times 1-2 and the granddaughter mentioned it is her baseline. Initial EKG and troponins are unremarkable. Review of systems Patient seen and examined the bedside. Patient is alert and oriented to person but disoriented to time and place. Patient responds to verbal commands and has spontaneous eye opening, GCS 15. Patient does not report of any chest pain, palpitations, headache, dizziness. Patient's blood pressure 137/65 mmHg, heart rate 74 per minute, SpO2 97% on room air. Objective vital signs Vital Sign Date Time Temp Pulse Resp B/P (MAP) Pulse Ox O2 Delivery O2 Flow Rate FiO2 02/07/24 13:11 97.5 74 19 97 02/07/24 08:58 137/65 (89) 02/07/24 08:00 Room Air* 0 21 Total Intake and Output 02/06/24 02/06/24 02/07/24 14:59 22:59 06:59 Intake Total 420 ml 240 ml Output Total 400 ml Balance 420 ml -160 ml medications Current Medications Medications Dose Ordered Sig/Minoo Route Start Time Stop Time Status Last Admin Dose Admin Acetaminophen 325 mg Q4HP PRN PO 02/06/24 04:15 Acetaminophen/ Hydrocodone Bitart 1 tab Q4HP PRN PO 02/06/24 04:15 Ondansetron HCl 4 mg Q4HP PRN IV 02/06/24 04:15 Nitroglycerin 0.4 mg Q5MINP PRN SL 02/06/24 04:15 Morphine Sulfate 2 mg Q30M PRN IV 02/06/24 04:15 Ceftriaxone Sodium 50 ml @ 100 mls/hr DAILY IV 02/06/24 10:00 02/07/24 08:16 Atorvastatin Calcium 20 mg HS PO 02/06/24 22:00 02/06/24 20:34 Aspirin 81 mg DAILY PO 02/06/24 10:00 02/07/24 08:15 Apixaban 2.5 mg BID PO 02/06/24 22:00 02/07/24 08:15 Pantoprazole Sodium 40 mg DAILY@0600 PO 02/07/24 06:00 02/07/24 06:12 Levothyroxine Sodium 25 mcg QAM PO 02/07/24 07:00 02/07/24 06:13 Examination Physical Examination Gen - no pallor, no icterus, no cyanosis, no clubbing, no LAD, no edema . Skin - Patients skin is warm and dry.. HEENT - normocephalic, atraumatic, moist mucous membranes. Neck - full ROM, no LAD, no JVD Pulmonary - improved breath sounds and crackles have improved since yesterday , no wheezing, no stridor. cardiovascular - normal S1,S2 heard. no murmurs heard. peripheral pulses normal radial 2+, pedal 2+. capillary refill normal <2 secs. GI - soft abdomen without tenderness to palpation . no hepatospleenomegaly. Bowel sounds+ Neurological - Patient is A/O X1 . Bilateral upper extremity strength 5/5, bilateral lower extremity strength 5/5, no facial droop, normal speech, no tremor, no sensory deficiets. laboratory and microbiology Laboratory Tests 02/07/24 05:58 Test 02/07/24 05:58 Range/Units Serum Glucose 101 74-106 mg/dL Problem List/Assessment/Plan Problem List/Assessment/Plan Assessment and plan # Acute chest pain rule out ACS - Initial EKG and troponins are unremarkable # SUSAN Prerenal on ?CKD stage 3 likely d/t VMN - serum creatinine 1.34-->0.87, BUN 25-->18 - GFR 38 mL/min - urine sodium 96, urine creatinine 106.4 - FENA 0.9% - renal ultrasound shows right kidney 8.9 cm, left kidney 9.7 cm, no evidence of discrete renal lesion, nephrolithiasis or hydronephrosis. - monitor I&O - Avoid nephrotoxic medication # History of pulmonary embolism on Eliquis 5 mg b.i.d. # Dementia - patient is A&O x 1( reported her baseline is alert and oriented x 1-2) - Lives with her granddaughter, who is also the power of compliance attorney # DVT prophylaxis - patient is on Eliquis Patient's acute kidney injury resolved. No further inpatient nephrology workup required. Thank you for consulting Nephrology. Goals of care discussed with the patient's daughter for over 15 minutes. Full code Plan discussed with Plan discussed with: Patient, Daughter ADDENDUM ADDENDUM case discussed with resident GONZALEZ HAJI Feb 07, 2024 14:03 FAITH WINSTON MD Feb 07, 2024 20:51
--- NOTE | 2024-02-07 15:51 | DVHPN2 ---
Consult Progress Note Date Seen: Feb 07, 2024 Subjective Patient reports: No new complaints Other Systems: Patient was examined at bedside, patient is still having mild discomfort in the chest that has been going on for the last couple of weeks, associated most likely due to pleuritic chest pain due to a recent episode of pulmonary embolism 2 weeks ago in the previous hospitalization. From cardiology standpoint we will continue with conservative management and follow-up in the outpatient if required. Objective vital signs Vital Sign Date Time Temp Pulse Resp B/P (MAP) Pulse Ox O2 Delivery O2 Flow Rate FiO2 02/07/24 13:11 97.5 74 19 97 02/07/24 13:00 139/73 (95) 02/07/24 08:00 Room Air* 0 21 Total Intake and Output 02/06/24 02/06/24 02/07/24 15:00 23:00 07:00 Intake Total 420 ml 240 ml Output Total 400 ml Balance 420 ml -160 ml Examination: GENERAL:Normal, HEENT:Normal, NECK:Normal, LUNGS:Normal, CVS:Normal, ABDOMEN:Normal, MSK:Normal, SKIN:Normal, NEURO:Normal, :Normal laboratory and microbiology Laboratory Tests 02/07/24 05:58 Test 02/07/24 05:58 Range/Units Serum Glucose 101 74-106 mg/dL Problem List/Assessment/Plan Problem List/Assessment/Plan Atypical chest pain likely pleuritic likely due to recent pulmonary embolism episode Episode of pulmonary embolism 2 weeks ago Urinary tract infection, resolving. Alzheimer's dementia Hypothyroidism Hypertension Plan/Recommendation EKG and troponins unremarkable, last echo 55% ejection fraction Conservative management at this time. Patient is not a good candidate for left heart catheterization based on her age and history of Alzheimer dementia Continue aspirin 20 mg, atorvastatin 20 mg, apixaban 2.5 mg b.i.d. Nitroglycerin 0.4 mg p.r.n. for chest pain We are signing off this case. But we remain available should any new concern or developments arise that would benefit from Cardiology input. Plan discussed with: Patient Date of Service: Feb 07, 2024 Billing Provider: BECCA MARTINEZ MD Cardiology Common Codes: 95220-SOPYJAPPBM INP/OBS CARE(Mod) JYOTI LEMUS RESIDENT Feb 07, 2024 15:51
== END 2024-02-07 14:30 | disposition home or self-care (01) | DRG 175 ==
LOC: ER 22:44 → TELE 02-06 04:11 → EDUNIT# 02-06 04:11 → TELE-WESTW 02-06 11:24 → TELE-CENTR 02-06 22:10
PROVIDERS: ADMIT Internal Medicine; ATTEND Internal Medicine
DX: I26.99 Other pulmonary embolism without acute cor pulmonale (principal); N17.0 Acute kidney failure with tubular necrosis; N39.0 Urinary tract infection, site not specified; D68.69 Other thrombophilia; N18.30 Chronic kidney disease, stage 3 unspecified; E03.9 Hypothyroidism, unspecified; E78.5 Hyperlipidemia, unspecified; G30.9 Alzheimer's disease, unspecified; F02.80 Dementia in other diseases classified elsewhere, unspecified severity, without behavioral disturbance, psychotic disturbance, mood disturbance, and anxiety; I12.9 Hypertensive chronic kidney disease with stage 1 through stage 4 chronic kidney disease, or unspecified chronic kidney disease; Z79.01 Long term (current) use of anticoagulants; Z79.899 Other long term (current) drug therapy
CPT/HCPCS: 36415; 71045; 76775; 80053; 81001; 82306; 82570; 82607; 83036; 83735; 83880; 84156; 84300; 84439; 84443; 84481; 84484; 85025; 93005; 93306; 96365; 97110; 97116; 97163; 97530; G0378